=== PATIENT | female | born 1925 | race Caucasian/White ===

== ENCOUNTER → 2016-07-09 | Outpatient (CLI) | payer MEDICARE ==
[2016-04-29 15:00] VITALS: BP 150/65
[~2016-07-09] MED LIST: AMLO10TA2 PO; CALC-44 PO; CHOL500016 PO; GABA-585 PO; INUL2TAB4 PO; IOHEXOL 180 MG/ML 10 ML VIAL. ONE; LEVO25TA2 PO; MELA3TAB PO; MULT-208 PO; OMEG10006 PO; OXYB10TA PO; OXYB1PAT TD; OXYC-323 PO; POLY17PO5 PO; PSYL3.4P PO; SIMV40TA3 PO; SITA50TA PO; TRAM50TA PO; methylPREDNISolone ACETATE 40 MG/ML VIAL. ONE; methylPREDNISolone ACETATE 80 MG/ML VIAL. ONE
--- NOTE | 2016-07-10 00:07 | PAIN ---
DATE OF SERVICE: 07/09/2016 DIAGNOSES: Cervical radiculopathy with cervical degenerative disk disease. HISTORY OF PRESENT ILLNESS: The patient is an 89-year-old female who returns for followup status post cervical epidural steroid injection x 1 on 05/14/2016. The patient reports she did very well there 100% improvement until the last few weeks, the pain has been returning now for about 2 weeks now increasing in the base of the neck and upper extremities, worse at night and most of the pain is noticeable at night when she is trying to lie down for sleep, has been awakening from sleep over the past week or so, comes and goes. Otherwise, during the day base of the neck, shoulders, and upper extremities bilaterally, radiating with some sharp pain, tingling and numbness as well, but no loss of motor function with some minor fatigability in the upper extremities compared normal, but not significantly enough where she has been dropping items or having any motor problems. The patient reports her pain is 0 on a scale of 10 currently, but can be as high as a 7 ____on at night. The patient reports no new motor or sensory deficits, no new bowel or bladder incontinence or other complaints. PHYSICAL EXAMINATION: VITAL SIGNS: The patient's blood pressure 160/91, pulse 67, respirations 20, temperature 97.4 degrees Fahrenheit, height 5 feet 1 inch, weight is 138 pounds. GENERAL: The patient is awake, alert, oriented, appropriate, very pleasant demeanor. HEENT: Head shows normocephalic, atraumatic. Extraocular movements are intact and symmetrical. Oral cavity shows mucous membranes moist and pink. NECK: Shows anterior throat supple without palpable lymphadenopathy noted. Swallow reflex is symmetrical. CHEST: Shows normal on inspection. Breath sounds clear to auscultation bilaterally. HEART: Shows S1 and S2 clear. ABDOMEN: Soft, nontender, nondistended. BACK: Shows spine grossly midline. Cervical paraspinous muscle shows some moderate tenderness to palpation in the inferior aspect of the cervical paraspinous muscles bilaterally as well as superior and medial aspect of the trapezius bilaterally. The patient's upper extremities show deep tendon reflexes at 1+ in the biceps and triceps tendons. 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 PLAN: Options were discussed with the patient. The patient's old chart was reviewed, as her current medication regimen updated. Current review of systems updated today as well. The patient would like to proceed with a second cervical epidural steroid injection today. Risks were discussed including but not limited to bleeding, infection, possibility of epidural hematoma, subsequent neurologic compromise, dural puncture, headaches, spinal cord and/or nerve damage, side effects of steroid medication and poor results regarding pain control. The patient understands and wishes to proceed. The patient will return to clinic in approximately 2 weeks for followup. She was counseled on return appointment, activity levels and side effects to be aware of. DIAGNOSIS: Cervical radiculopathy with cervical degenerative disk disease. PROCEDURE: Cervical epidural steroid injection in translaminar approach at C6-C7 level using fluoroscopic guidance under sterile prep and drape with local anesthesia medications and injections 20 mg Depo-Medrol +5 mL of preservative-free normal saline and 2 mL Isovue contrast. CONDITION AT DISCHARGE: Stable. The patient tolerated procedure well. No complications. FUAD WOLF MD DR: MARY/alice JOB#: [id number] / [id number]
== END ==
LOC: PNCL 10:35
PROVIDERS: ATTEND Anesthesiology
DX: M50.123 Cervical disc disorder at C6-C7 level with radiculopathy (principal)
CPT/HCPCS: 62321; J1030; J1040

== ENCOUNTER → 2016-08-31 | Outpatient (CLI) | payer MEDICARE ==
[2016-04-29 15:00] VITALS: BP 150/65
--- NOTE | 2016-08-31 22:16 | PAIN ---
DATE OF SERVICE: 08/31/2016 DIAGNOSES: Cervical radiculopathy with cervical degenerative disk disease. HISTORY OF PRESENT ILLNESS: This is an 89-year-old female who returns for followup status post cervical epidural steroid injection x 2, last seen 07/09/2016. The patient did very well with about 90% improvement after the injection, but the pain is returning now in the base of the neck, bilateral upper extremities, bilateral arms and hands. It is tingling and numbness, constant aching pain, rates a 5 on a scale of 10 across the base of the neck, shoulders, and upper extremities. The patient reports no new motor or sensory deficits, no new bowel or bladder incontinence or other complaints, but still has some increased fatigue and constant aching pain, which has been keeping her awake at night in the neck in the shoulders and arms. The patient reports otherwise doing well. PHYSICAL EXAMINATION: VITAL SIGNS: The patient's blood pressure 154/71, pulse 88, respirations 18, temperature is 97.9 degrees Fahrenheit, height 5 feet 1 inch, weight is 141 pounds. GENERAL: The patient is awake, alert, oriented, appropriate, very pleasant demeanor. HEENT: Head shows normocephalic, atraumatic. Extraocular movements are intact and symmetrical. Oral cavity shows mucous membranes moist and pink. Dentition is intact. NECK: Shows anterior throat supple without palpable lymphadenopathy noted. Swallow reflex is symmetrical. CHEST: Shows normal on inspection. Breath sounds clear to auscultation bilaterally. HEART: Shows S1 and S2 clear. ABDOMEN: Soft, nontender, nondistended. No palpable organomegaly is noted. BACK: Shows spine grossly midline. Cervical spine shows midline paraspinous musculature symmetrical on inspection with palpation shows some moderate tenderness in the inferior and middle aspect of the cervical paraspinous musculature bilaterally as well as superior medial and lateral trapezius, slightly more tender on the right than the left, but symmetrical. EXTREMITIES: Upper extremities show deep tendon reflexes 1+ in the biceps and triceps tendons. 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 Peripheral pulses are 1+ radial distribution bilaterally. Options were discussed with the patient and the patient's old chart was reviewed as her current medication regimen updated. Current review of systems updated today as well. We will proceed with a third cervical epidural steroid injection today with fluoroscopic guidance. Risks were again discussed including, but not limited to bleeding, infection, possibility of epidural hematoma, subsequent neurologic compromise, dural puncture, headaches, spinal cord and/or nerve damage, side effects of steroid medication and poor results regarding pain control. The patient understands and wishes to proceed. The patient will return to clinic in approximately 2 weeks for followup. She was counseled to return appointment, activity level and side effects to be aware of. DIAGNOSIS: Cervical radiculopathy with cervical degenerative disk disease. PROCEDURE: Cervical epidural steroid injection in translaminar approach at C6-C7 level using C-arm fluoroscopic guidance under sterile prep and drape using local anesthetic. Medication injected 120 mg Depo-Medrol plus 5 mL of preservative-free normal saline and 2 mL of Isovue for contrast. CONDITION AT DISCHARGE: Stable. The patient tolerated procedure well, had no complications. FUAD WOLF MD DR: MARY/alice JOB#: [id number] / [id number]
== END | disposition home or self-care (01) ==
LOC: PNCL 07:52
PROVIDERS: ATTEND Anesthesiology
DX: M50.023 Cervical disc disorder at C6-C7 level with myelopathy (principal); E78.00 Pure hypercholesterolemia, unspecified; E11.9 Type 2 diabetes mellitus without complications; I10 Essential (primary) hypertension; E03.9 Hypothyroidism, unspecified; Z90.49 Acquired absence of other specified parts of digestive tract; Z90.710 Acquired absence of both cervix and uterus; Z92.82 Status post administration of tPA (rtPA) in a different facility within the last 24 hours prior to admission to current facility; Z96.653 Presence of artificial knee joint, bilateral
CPT/HCPCS: 62321; J1030; J1040

== ENCOUNTER → 2016-10-22 | Outpatient (CLI) | payer MEDICARE ==
[2016-04-29 15:00] VITALS: BP 150/65
[~2016-10-22] MED LIST changes: -LEVO25TA2 PO; +LEVO25TA55 PO; +POLY17PO29 PO; -POLY17PO5 PO
--- NOTE | 2016-10-23 02:31 | PAIN ---
DATE OF SERVICE: 10/22/2016 DIAGNOSES: Cervical radiculopathy with cervical degenerative disk disease. HISTORY OF PRESENT ILLNESS: The patient is an 89-year-old female who returns for followup, last seen on 09/04/2016, the patient underwent cervical epidural steroid injection at that time with very good results. The patient reports about 90% improvement for about 3-4 weeks; after that, the pain began to return at the base of the neck and bilateral upper extremities, somewhat worse on the left than the right, but still better than it was prior to her last injection. The patient reports it is cramping and aching pain that is on and off, worse with activity difficulty sleeping, she has some trouble last night because of the pain radiating down into her left hand. The patient reports otherwise she is doing fairly well. Again, pain is returning to a moderate extent. The patient is still doing exercises at least 4 days a week at the [facility] facility near her and is sleeping most nights fairly well, but the pain has been waking her up from sleep the last few days. The patient reports no new motor or sensory deficits, no new bowel or bladder incontinence or other complaints. Rates the pain anywhere from a 5 to a 10 on a scale of 10, currently a 5 today. PHYSICAL EXAMINATION: VITAL SIGNS: The patient's blood pressure is 139/73, pulse 61, respirations 16, temperature 97.5 degrees Fahrenheit, height is 5 feet 1 inch, weight is 135 pounds. GENERAL: The patient is awake, alert, oriented, appropriate, very pleasant demeanor. HEENT: Shows normocephalic and atraumatic. Extraocular movements are intact and symmetrical. Oral cavity shows mucous membranes moist and pink. Dentition is intact. NECK: Shows anterior throat supple without palpable lymphadenopathy noted. Swallow reflex is symmetrical. CHEST: Shows normal on inspection. Breath sounds are clear to auscultation bilaterally. HEART: Shows S1 and S2 clear. No murmurs auscultated. ABDOMEN: Soft, nontender, nondistended. No palpable organomegaly is noted. No rebound or guarding demonstrated. BACK: Shows spine grossly in the midline. Cervical lordotic curvature is slightly flattened with some minor increase in thoracic kyphotic curvature. Paraspinous musculature is only very mildly tender, diffusely in the inferior aspect of the cervical paraspinous muscles but without radiation. EXTREMITIES: Upper extremities showed deep tendon reflexes at 1+ in the biceps and triceps tendons. Motor exam is strong with 5/5 logistics lead strength, biceps and triceps flexion and equal. PLAN: Options were discussed with the patient. The patient's old chart was reviewed as her current medication regimen and updated. Current review of systems updated today as well. We will proceed with a cervical epidural steroid injection today, it is the first in the series with fluoroscopic guidance. Risks were again discussed including but not limited to bleeding, infection, possibility of epidural hematoma, subsequent neurologic compromise, dural puncture, headaches, spinal cord and/or nerve damage, side effects of steroid medication and poor results regarding pain control. The patient understands and wishes to proceed. The patient will return to clinic in approximately 2 weeks for followup. She was counseled on return appointment, activity level and side effects to be aware of. DIAGNOSES: Cervical radiculopathy with cervical degenerative disk disease. PROCEDURE: Cervical epidural steroid injection in translaminar approach at C6-C7 level using C-arm fluoroscopic guidance under sterile prep and drape using local anesthetic. MEDICATION INJECTED: Depo-Medrol 120 mg plus 5 mL of preservative-free normal saline and 2 mL of Isovue for contrast. CONDITION AT DISCHARGE: Stable. The patient tolerated the procedure well, had no complications. FUAD WOLF MD DR: MARY/alice JOB#: [id number] / [id number]
== END | disposition home or self-care (01) ==
LOC: PNCL 10:16
PROVIDERS: ATTEND Anesthesiology
DX: M50.123 Cervical disc disorder at C6-C7 level with radiculopathy (principal); E78.00 Pure hypercholesterolemia, unspecified; I10 Essential (primary) hypertension; M19.90 Unspecified osteoarthritis, unspecified site; E11.9 Type 2 diabetes mellitus without complications; E03.9 Hypothyroidism, unspecified; Z90.49 Acquired absence of other specified parts of digestive tract; Z90.710 Acquired absence of both cervix and uterus; Z96.653 Presence of artificial knee joint, bilateral
CPT/HCPCS: 62321; J1030; J1040